=== PATIENT | male | born 1995 | race Caucasian/White ===

== ENCOUNTER 2019-12-05 16:15 | Outpatient (CLI) | payer OTHER | END 2019-12-08 16:16 | disposition home or self-care (01) | LOC: PPH VACUNA 16:15 | DX: Z23 Encounter for immunization (principal) ==

== ENCOUNTER 2020-01-21 10:39 | Emergency (ER) | payer OTHER ==
[~2020-01-21] VITALS: Ht 160 cm; Wt 86.6 kg
== END 2020-01-21 13:50 | disposition home or self-care (01) ==
LOC: ER 10:39
DX: R19.7 Diarrhea, unspecified (principal); Z03.818 Encounter for observation for suspected exposure to other biological agents ruled out

== ENCOUNTER 2020-04-21 18:17 | Emergency (ER) | payer OTHER ==
[~2020-04-21] VITALS: Ht 160 cm; Wt 72.6 kg
[2020-04-21] MEDS ORDERED: PANADOL (18:40)
== END 2020-04-21 20:36 | disposition home or self-care (01) ==
LOC: ER 18:17
DX: M62.830 Muscle spasm of back (principal); M54.5 Low back pain